=== PATIENT | female | born 1985 | race Two or more races ===

== ENCOUNTER 2020-08-12 17:59 | Emergency (ER) | payer MEDICAID ==
[~2020-08-12] VITALS: Ht 160 cm; Wt 76.0 kg
[2020-08-12 18:45] LABS: BASOPHILS % 0.7 % (0.0-2.0); EOSINOPHILS % 0.3 % (0.0-5.0); HEMATOCRIT. 40.8 % (36.0-48.0); LYMPHOCYTES % 27.2 % (20.0-50.0); MEAN CORPUSCULAR HEMOGLOBIN 30.1 pg (28.0-32.0); MEAN CORPUSCULAR VOLUME 87.8 fL (81.0-99.0); MONOCYTES % 4.8 % (2.0-8.0); PLATELET 302 x1000/uL (130-400); RED BLOOD CELL COUNT 4.65 mill/uL (4.2-5.4); RED CELL DISTRIBUTION WIDTH 14.4 % (11.6-14.6)
[2020-08-12] MEDS ORDERED: LABETALOL 5MG/ML SYR 20 MG/4 ML SYRINGE IV ONE ×2 (18:45→20:15)
[2020-08-12 18:52] LABS: CHLORIDE 107 mEq/L (98-107)
[2020-08-12 18:54] LABS: HCG SCREEN POSITIVE
[2020-08-12 19:09] LABS: PROTHROMBIN TIME 10.4 sec (9.6-11.0)
[2020-08-12 19:16] LABS: B-HCG QUANTITATIVE 6981 mIU/mL (<3)
[2020-08-12] MEDS ORDERED: MISOPROSTOL 200MCG TABLET PO ONE (22:00)
[2020-08-12] MEDS ORDERED: MISO200T PO (22:09)
[2020-08-12 22:45] VITALS: BP 136/78
== END 2020-08-12 22:55 | disposition home or self-care (01) ==
LOC: ER 17:59
DX: O02.1 Missed abortion (principal); I10 Essential (primary) hypertension
CPT/HCPCS: 36415; 76801; 76817; 80053; 83615; 83735; 84550; 84702; 84703; 85025; 85610; 86850; 86900; 86901; 96374; 99284; J3490